=== PATIENT | male | born 1930 | race Caucasian/White ===

== ENCOUNTER 2018-11-09 16:52 | Observation (INO) ==
--- NOTE | 2018-11-09 17:16 | Emergency Department Note ---
Disposition Clinical Impression: Hyperkalemia, Encephalopathy, Acute kidney injury superimposed on CKD, Elevated troponin, Chronic anemia Disposition: Admitted As Inpatient Condition: Good General Adult HPI - General Chief complaint: ED Altered Mental Status Stated complaint: AMS Time Seen by Provider: 11/09/18 17:09 Source: patient Limitations: no limitations - History of Present Illness Pain Scale: 0 - Related Data Home Medications Medication Instructions Recorded Confirmed Atenolol [Tenormin] 25 mg PO DAILY 01/14/17 02/12/18 RX: Lisinopril [Zestril] 10 mg PO 01/14/17 Allergies Allergy/AdvReac Type Severity Reaction Status Date / Time No Known Allergies Allergy Verified 02/12/18 11:27 Past Medical History - Past Medical History Medical history: Reports: non-contributory, hypertension, renal disease Psychiatric history: Reports: no psych history - Social History Smoking Status: Never smoker Smokeless Tobacco Status: No Alcohol use: Reports: none Physical Exam - General Limitations: no limitations General appearance: alert, in no apparent distress Course Vital Signs Temperature 97.7 F 11/09/18 17:01 Pulse Rate 112 11/09/18 17:01 Respiratory Rate 26 11/09/18 17:01 Blood Pressure 82/47 11/09/18 17:01 O2 Sat by Pulse Oximetry 100 11/09/18 17:01 Temperature 97.5 F L 11/10/18 07:00 Pulse Rate 93 11/10/18 07:00 Respiratory Rate 14 11/10/18 07:00 Blood Pressure 119/68 11/10/18 07:00 O2 Sat by Pulse Oximetry 100 11/10/18 07:00 Oxygen Delivery Oxygen Delivery Room Air Medical Decision Making - Lab Data Result diagrams: 11/10/18 05:02 11/10/18 05:02 Lab Results 11/09/18 11/09/18 11/09/18 Range/Units 17:35 17:35 17:45 WBC 13.0 H (4.3-11.1) K/mcL RBC 2.94 L (4.19-5.50) M/mcL Hgb 10.1 L (12.9-16.9) g/dL Hct 31.2 L (37.5-50.1) % MCV 106.1 H (83.0-100.0) fL MCH 34.4 H (28.0-33.3) pg MCHC 32.4 (31.6-35.5) g/dL RDW 14.0 (11.5-14.5) % Plt Count 379 (140-400) K/mcL MPV 9.6 (9.4-12.4) fL Immature Gran % 0.5 (0-4) % Seg Neutrophils % 83.3 % Lymphocytes % 10.1 % Monocytes % 5.5 % Eosinophils % 0.1 % Basophils % 0.5 % Neutrophils # 10.9 H (1.6-8.9) K/mcL Lymphocytes # 1.3 (0.6-4.6) K/mcL Monocytes # 0.7 (0.0-1.3) K/mcL Eosinophils # 0.0 (0.0-0.6) K/mcL Basophils # 0.1 (0.0-0.2) K/mcL Sodium 138 (136-145) mEq/L Potassium 5.7 H (3.5-5.1) mEq/L Chloride 111 H (98-107) mEq/L Carbon Dioxide 12 L (23-29) mEq/L BUN 82 H (8-23) mg/dL Creatinine 3.42 H (0.70-1.30) mg/dL Est GFR ( Amer) 21 L (> 60) Est GFR (Non-Af Amer) 17 L (> 60) BUN/Creatinine Ratio 24 (6-26) Glucose 113 H (70-105) mg/dL Calculated Osmolality 312 H (280-300) Lactic Acid 1.0 (0.5-2.2) mmol/L Calcium 9.0 (8.6-10.3) mg/dL Phosphorus 4.6 H (2.7-4.5) mg/dL Magnesium 2.4 (1.6-2.6) mg/dL Total Bilirubin 0.2 L (0.3-1.0) mg/dL Direct Bilirubin 0.1 (0.0-0.2) mg/dL Indirect Bilirubin 0.1 (0.0-1.2) mg/dL AST 12 L (13-39) Units/L ALT 9 (7-52) Units/L Alkaline Phosphatase 47 (34-104) Units/L Troponin I 0.04 H* (< 0.04) ng/mL Serum Total Protein 6.3 L (6.4-8.9) g/dL Albumin 3.6 (3.5-5.7) g/dL Globulin 2.7 (2.4-3.5) g/dL Albumin/Globulin Ratio 1.3 (1.1-2.2) Urine Color (Yellow) Urine Clarity (Clear) Urine pH (5.0-8.0) pH Units Ur Specific [place] (1.010-1.025) Urine Protein (Neg-Trace) mg/dL Urine Glucose (UA) (Normal) mg/dL Urine Ketones (Negative) mg/dL Urine Blood (Negative) Urine Nitrite (Negative) Urine Bilirubin (Negative) Urine Urobilinogen (Normal) mg/dL Ur Leukocyte Esterase (Negative) Ur Culture Indicated? (NO) 11/09/18 11/09/18 11/09/18 Range/Units 20:20 21:37 21:37 WBC (4.3-11.1) K/mcL RBC (4.19-5.50) M/mcL Hgb (12.9-16.9) g/dL Hct (37.5-50.1) % MCV (83.0-100.0) fL MCH (28.0-33.3) pg MCHC (31.6-35.5) g/dL RDW (11.5-14.5) % Plt Count (140-400) K/mcL MPV (9.4-12.4) fL Immature Gran % (0-4) % Seg Neutrophils % % Lymphocytes % % Monocytes % % Eosinophils % % Basophils % % Neutrophils # (1.6-8.9) K/mcL Lymphocytes # (0.6-4.6) K/mcL Monocytes # (0.0-1.3) K/mcL Eosinophils # (0.0-0.6) K/mcL Basophils # (0.0-0.2) K/mcL Sodium 140 (136-145) mEq/L Potassium 4.4 (3.5-5.1) mEq/L Chloride 114 H (98-107) mEq/L Carbon Dioxide 12 L (23-29) mEq/L BUN 79 H (8-23) mg/dL Creatinine 3.22 H (0.70-1.30) mg/dL Est GFR ( Amer) 22 L (> 60) Est GFR (Non-Af Amer) 18 L (> 60) BUN/Creatinine Ratio 25 (6-26) Glucose 123 H (70-105) mg/dL Calculated Osmolality 315 H (280-300) Lactic Acid (0.5-2.2) mmol/L Calcium 8.8 (8.6-10.3) mg/dL Phosphorus (2.7-4.5) mg/dL Magnesium (1.6-2.6) mg/dL Total Bilirubin (0.3-1.0) mg/dL Direct Bilirubin (0.0-0.2) mg/dL Indirect Bilirubin (0.0-1.2) mg/dL AST (13-39) Units/L ALT (7-52) Units/L Alkaline Phosphatase (34-104) Units/L Troponin I 0.04 H* (< 0.04) ng/mL Serum Total Protein (6.4-8.9) g/dL Albumin (3.5-5.7) g/dL Globulin (2.4-3.5) g/dL Albumin/Globulin Ratio (1.1-2.2) Urine Color Yellow (Yellow) Urine Clarity Clear (Clear) Urine pH 5.0 (5.0-8.0) pH Units Ur Specific [place] 1.023 (1.010-1.025) Urine Protein Trace (Neg-Trace) mg/dL Urine Glucose (UA) Normal (Normal) mg/dL Urine Ketones Trace H (Negative) mg/dL Urine Blood Negative (Negative) Urine Nitrite Negative (Negative) Urine Bilirubin Negative (Negative) Urine Urobilinogen Normal (Normal) mg/dL Ur Leukocyte Esterase Negative (Negative) Ur Culture Indicated? NO (NO) Attestation Statement - Attestation Attestation: I examined this patient and my medical decision-making was reviewed with the Resident Physician. I agree with the documented findings, disposition and treatment plan as described except to the extent set forth below. [id number] time provided Patient arrives in the care of his family with confusion. He has a history of chronic kidney disease. He is not dialysis dependent. He is alert and appears in no acute distress. Family provides most of the history 18:43: Care endorsed to Dr. Sage at [address] head, urinalysis. I anticipate the patient being admitted for CKD, hyperkalemia, confusion
[2018-11-09] MEDS ORDERED: 0.9 % Sodium Chloride 1,000 ML IVC ONE ×2 (17:27→19:51)
[2018-11-09 17:45] LABS: Basophils # 0.1 K/mcL (0.0-0.2); Basophils % 0.5 %; Eosinophils % 0.1 %; Hematocrit 31.2 % (37.5-50.1); Hemoglobin 10.1 g/dL (12.9-16.9); Immature Granulocytes % 0.5 % (0-4); Lymphocytes # 1.3 K/mcL (0.6-4.6); Lymphocytes % 10.1 %; Mean Corpuscular HGB Conc 32.4 g/dL (31.6-35.5); Mean Corpuscular Hemoglobin 34.4 pg (28.0-33.3); Mean Corpuscular Volume 106.1 fL (83.0-100.0); Mean Platelet Volume 9.6 fL (9.4-12.4); Monocytes # 0.7 K/mcL (0.0-1.3); Monocytes % 5.5 %; Neutrophils # 10.9 K/mcL (1.6-8.9); Platelet Count 379 K/mcL (140-400); Red Blood Count 2.94 M/mcL (4.19-5.50); Segmented Neutrophils % 83.3 %
[2018-11-09 18:08] LABS: Albumin 3.6 g/dL (3.5-5.7); Albumin/Globulin Ratio 1.3 (1.1-2.2); Bilirubin,Direct 0.1 mg/dL (0.0-0.2); Bilirubin,Indirect 0.1 mg/dL (0.0-1.2); Bilirubin,Total 0.2 mg/dL (0.3-1.0); Globulin 2.7 g/dL (2.4-3.5); Magnesium 2.4 mg/dL (1.6-2.6); Phosphorous 4.6 mg/dL (2.7-4.5); Potassium 5.7 mEq/L (3.5-5.1); Total Protein 6.3 g/dL (6.4-8.9)
--- NOTE | 2018-11-09 18:09 | Emergency Department Note ---
Disposition Clinical Impression: Hyperkalemia, Encephalopathy, Acute kidney injury superimposed on CKD, Elevated troponin, Chronic anemia Disposition: Still a Patient Condition: Good Referrals: Katrin Rivera, GRAIN OILSEED OR PASTURE GROWER [Primary Care Provider] - Forms: ED Satisfaction Letter Time of Disposition: 18:57 Altered Mental Status HPI - General Chief Complaint: ED Altered Mental Status Stated Complaint: AMS Time Seen by Provider: 11/09/18 17:09 Source: patient, family Limitations: altered mental status Nursing Notes Reviewed: Yes Vital Signs Reviewed: Yes - History of Present Illness HPI Narrative: 88-year-old male presents to the emergency department with family with concerns of altered mental status. The majority of the history was obtained by daughter whose the patient lives with. They state over the past 2 months he has been progressively more forgetful confused and today appeared more weak than usual. States all the symptoms seem to have worsened over the past 2 months. He is been complaining of vague abdominal pain with nausea and vomiting and decreased appetite. He is seen his primary care provider as well as his pocket machine operator during this time and they have not found any exact etiology. Today was most concerning as he was unable to stand and walk like he normally does. They state 2 months ago he was able to walk half a mile with his dog. They deny any fevers cough or shortness of breath. Unknown last bowel movement. He denies any pain with urination. No recent hospitalization. Dr. Harris is his pocket machine operator and diagnosed with stage III kidney disease. He is not at this stage of dialysis. Family is most concerned for his weakness which appears acute compared to his forgetfulness and confusion that has been ongoing. No history of alcohol abuse or liver disease. MD complaint: altered mental status, confusion - Related Data Home Medications Medication Instructions Recorded Confirmed Atenolol [Tenormin] 25 mg PO DAILY 01/14/17 02/12/18 Lisinopril [Zestril] 10 mg PO 01/14/17 Allergies Allergy/AdvReac Type Severity Reaction Status Date / Time No Known Allergies Allergy Verified 02/12/18 11:27 All systems ED: reviewed and negative except as stated. Limitations: ROS unobtainable due to patients medical condition Past Medical History - Past Medical History Source: obtained from family Medical history: Reports: non-contributory, hypertension, renal disease Psychiatric history: Reports: no psych history - Social History Smoking Status: Never smoker Smokeless Tobacco Status: No Alcohol use: Reports: none Physical Exam - General Limitations: no limitations, other (Hard of hearing) General appearance: alert, in no apparent distress, cachectic - Head Head exam: atraumatic, normocephalic, normal inspection - Eye Eye exam: Present: normal appearance, PERRL, EOMI. Absent: scleral icterus - ENT ENT exam: normal exam, normal oropharynx, mucous membranes moist - Neck Neck exam: Present: normal inspection, full ROM, trachea midline - Chest Chest inspection: Present: normal inspection, symmetric chest wall rise - Respiratory Respiratory exam: Present: normal lung sounds bilaterally. Absent: respiratory distress, wheezes - Cardiovascular Cardiovascular exam: Present: regular rate, normal rhythm, normal heart sounds. Absent: systolic murmur, diastolic murmur - Abdominal Exam Abdominal exam: Present: soft, Non-Tender, normal bowel sounds. Absent: te nderness, distention, guarding, rebound, rigidity - Extremities Exam Extremities exam: Present: normal inspection, full ROM. Absent: tenderness, pedal edema - Back Exam Back exam: Present: normal inspection, full ROM. Absent: tenderness - Neurological Exam Neurological exam: Present: alert, other (bradykinesis, cogwheeling) - Expanded Neurological Exam Patient oriented to: Present: person, place. Absent: time Cranial nerves: EOM function (II, III, IV, ): Normal, facial sensation (V): Normal, facial palsy (VII): Normal, gag reflex (IX): Normal, tongue deviation (XII): Normal Motor strength - LUE: 5/5 Motor strength - RUE: 5/5 Motor strength - LLE: 5/5 Motor strength - RLE: 5/5 Coma Scale Eye Opening: Spontaneous Coma Scale Motor Response: Obeys Commands Coma Scale Verbal Response: Confused Coma Scale Total: 14 - Psychiatric Psychiatric exam: Present: normal mood, flat affect - Skin Skin exam: Present: warm, dry, intact, normal color Course Course Narrative: Over the past 2 years the patient has been living with the daughter and son-in-law. Patient's recently past due to Alzheimer's dementia. The family is gone from the hours of 7 AM to 4 PM. They deny any recent fall or injury. The daughter wishes to speak with social science analyst on additional resources. They are adamant about not placing the patient in a nursing facility. They state he is significantly more weak than usual. Altered mental status workup initiated including a CT head as well as evaluation for possible sepsis. Patient is afebrile but tachycardic. His blood pressure is low despite his history of hypertension. Neurologic exam reveals that he is hard of hearing but oriented to person. He does not know the year but does regret recognize that he is in the hospital. He exhibited cogwheel rigidity and bradykinesia. No history of dementia reported. Disposition pending workup. - Reevaluation(s) Reevaluation #1: Patient has hyperkalemia 5.7. His creatinine is 3.5. His troponin is also elevated .04 in the setting of chronic kidney disease. I suspect this is likely interpreting to some of his weakness and confusion. We will treat his hyperkalemia with calcium, insulin, glucose and albuterol. Patient's daughter states that he has been having progressively worsening kidney failure. He has been initiated on bicarb salt tablets. Patient will require admission for his hyperkalemia and weakness. Patient and family are in agreement with this plan. CT scan of the head is pending. Urinalysis is pending. No active signs of infection at this time. Patient will likely require admission. Patient was signed out to nighttime physician Dr. Sage. Please see his note for further details and final disposition. Time: 18:55 Vital Signs Temperature 97.7 F 11/09/18 17:01 Pulse Rate 112 11/09/18 17:01 Respiratory Rate 26 11/09/18 17:01 Blood Pressure 82/47 11/09/18 17:01 O2 Sat by Pulse Oximetry 100 11/09/18 17:01 Temperature 97.7 F 11/09/18 17:01 Pulse Rate 112 11/09/18 17:01 Respiratory Rate 26 11/09/18 17:01 Blood Pressure 82/47 11/09/18 17:01 O2 Sat by Pulse Oximetry 100 11/09/18 17:01 Oxygen Delivery Oxygen Delivery Room Air Altered Mental Status - MDM Narrative Medical decision making narrative: Patient was discussed with my attending physician who agrees with ED management and final disposition. They independently evaluated the patient. Please refer to their attestation to this encounter for additional information. This note was generated by [employer] voice recognition software and as a result grammatical or spelling errors may occur using this program. - Medical Records Medical records reviewed: Yes I reviewed the patient's medical records. - Lab Data Lab results reviewed: Yes I reviewed the patient's lab results. Result diagrams: 11/09/18 17:35 11/09/18 17:35 Lab Results 11/09/18 11/09/18 11/09/18 Range/Units 17:35 17:35 17:45 WBC 13.0 H (4.3-11.1) K/mcL RBC 2.94 L (4.19-5.50) M/mcL Hgb 10.1 L (12.9-16.9) g/dL Hct 31.2 L (37.5-50.1) % MCV 106.1 H (83.0-100.0) fL MCH 34.4 H (28.0-33.3) pg MCHC 32.4 (31.6-35.5) g/dL RDW 14.0 (11.5-14.5) % Plt Count 379 (140-400) K/mcL MPV 9.6 (9.4-12.4) fL Immature Gran % 0.5 (0-4) % Seg Neutrophils % 83.3 % Lymphocytes % 10.1 % Monocytes % 5.5 % Eosinophils % 0.1 % Basophils % 0.5 % Neutrophils # 10.9 H (1.6-8.9) K/mcL Lymphocytes # 1.3 (0.6-4.6) K/mcL Monocytes # 0.7 (0.0-1.3) K/mcL Eosinophils # 0.0 (0.0-0.6) K/mcL Basophils # 0.1 (0.0-0.2) K/mcL Sodium 138 (136-145) mEq/L Potassium 5.7 H (3.5-5.1) mEq/L Chloride 111 H (98-107) mEq/L Carbon Dioxide 12 L (23-29) mEq/L BUN 82 H (8-23) mg/dL Creatinine 3.42 H (0.70-1.30) mg/dL Est GFR ( Amer) 21 L (> 60) Est GFR (Non-Af Amer) 17 L (> 60) BUN/Creatinine Ratio 24 (6-26) Glucose 113 H (70-105) mg/dL Calculated Osmolality 312 H (280-300) Lactic Acid 1.0 (0.5-2.2) mmol/L Calcium 9.0 (8.6-10.3) mg/dL Phosphorus 4.6 H (2.7-4.5) mg/dL Magnesium 2.4 (1.6-2.6) mg/dL Total Bilirubin 0.2 L (0.3-1.0) mg/dL Direct Bilirubin 0.1 (0.0-0.2) mg/dL Indirect Bilirubin 0.1 (0.0-1.2) mg/dL AST 12 L (13-39) Units/L ALT 9 (7-52) Units/L Alkaline Phosphatase 47 (34-104) Units/L Troponin I 0.04 H* (< 0.04) ng/mL Serum Total Protein 6.3 L (6.4-8.9) g/dL Albumin 3.6 (3.5-5.7) g/dL Globulin 2.7 (2.4-3.5) g/dL Albumin/Globulin Ratio 1.3 (1.1-2.2) - Radiology Data Radiology results reviewed: Yes I reviewed the patient's radiology results. Chest X-Ray 11/09/18 17:16 IMPRESSION: No acute process. D/ / Sammy Patten MD / Sammy Patten MD Interpreting Provider: Sammy Patten MD - EKG Data EKG attestation: Yes I reviewed and interpreted this EKG. EKG results narrative: EKG performed at 1718 normal sinus rhythm 95 beats per minute, normal axis, left bundle branch block QRS 134, no Sgarbossa criteria. There is no old EKG available for comparison at this time. No acute ischemic changes. TPA Checklist - LKW: 3-4.5 hrs Add. Warnings/Precautions Patient/family understanding: The patient/family members have been counseled and understood the risk, benefit, and alternatives of treatment. S.B.A.R. - S.B.A.R. Situation: Demographics, MOA Background: Presenting Complaint, Relevant PMH, Meds, & Allergies Assessment: Vital Signs, Course and respsone to treatment, Exam Concerns, Patient/Family Expectation, Pertinant Lab Results, Outstanding Labs Recommendation: Barrier(s) to disposition, Recommendation based on pending studies, treatments, or consults Jonathon Report Given to: Dr. Alona Holt Repor Time: 18:58
[2018-11-09 18:21] LABS: Troponin I 0.04 ng/mL (< 0.04)
[2018-11-09] MEDS ORDERED: Albuterol 2.5 MG/3 ML NEBULIZER IH ONE (18:40)
[2018-11-09] MEDS ORDERED: Insulin Human Regular 10 UNIT in 0.9 % Sodium Chloride 10 ML IV ONE (18:40)
[2018-11-09] MEDS ORDERED: *HR* Dextrose 50 % in Water (Syg) 50 ML SYRINGE IVP ONE (18:41)
[2018-11-09] MEDS ORDERED: Aspirin 325 MG TABLET PO ONE (18:54)
[2018-11-09 20:39] LABS: Bilirubin,Urine Negative (Negative); Blood,Urine Negative (Negative); Clarity,Urine Clear (Clear); Color,Urine Yellow (Yellow); Glucose,Urine (UA) Normal (Normal); Ketones,Urine Trace mg/dL (Negative); Leukocyte Esterase,Urine Negative (Negative); Nitrite,Urine Negative (Negative); Protein,Urine Trace mg/dL (Neg-Trace); Specific Gravity,Urine 1.023 (1.010-1.025); Urobilinogen,Urine Normal (Normal)
--- NOTE | 2018-11-09 21:17 | Emergency Department Note ---
Disposition Clinical Impression: Hyperkalemia, Encephalopathy, Acute kidney injury superimposed on CKD, Elevated troponin, Chronic anemia Disposition: Admitted As Inpatient Condition: Good Referrals: Katrin Rivera, TRAIN CONTROL ELECTRONIC TECHNICIAN [Primary Care Provider] - Forms: ED Satisfaction Letter General Adult HPI - General Chief complaint: ED Altered Mental Status Stated complaint: AMS Time Seen by Provider: 11/09/18 17:09 Source: patient, family Limitations: no limitations, other (Hard of hearing) - History of Present Illness Pain Scale: 0 - Related Data Home Medications Medication Instructions Recorded Confirmed Atenolol [Tenormin] 25 mg PO DAILY 01/14/17 02/12/18 Lisinopril [Zestril] 10 mg PO 01/14/17 Allergies Allergy/AdvReac Type Severity Reaction Status Date / Time No Known Allergies Allergy Verified 02/12/18 11:27 Past Medical History - Past Medical History Medical history: Reports: non-contributory, hypertension, renal disease Psychiatric history: Reports: no psych history - Social History Smoking Status: Never smoker Smokeless Tobacco Status: No Alcohol use: Reports: none Physical Exam - General Limitations: no limitations, other (Hard of hearing) General appearance: alert, in no apparent distress, cachectic Course Course Narrative: Patient was taken over at sign out from Dr. Prisca Vázquez. Patient with increased confusion and concern for dehydration as he has not tolerated anything for the last several days. Patient with nausea, decreased appetite, vomiting without abdominal pain. CT scan of the head and urinalysis are pending. CT scan without acute abnormality. Urinalysis without evidence of infection. Patient mildly elevated leukocytosis without cough or sinus infection urinalysis. Patient is afebrile. Patient should vital signs significantly improved after fluids. Concern for significant dehydration. Patient will undergo repeat testing and continued monitoring with the hospital. Patient did receive treatment for elevated potassium with concern for EKG changes. Discussed with hospitalist. Patient to get Kayexalate. Repeat BMP and troponin ordered. I have discussed overall results with patient and family. Vital Signs Temperature 97.7 F 11/09/18 17:01 Pulse Rate 112 11/09/18 17:01 Respiratory Rate 26 11/09/18 17:01 Blood Pressure 82/47 11/09/18 17:01 O2 Sat by Pulse Oximetry 100 11/09/18 17:01 Temperature 97.7 F 11/09/18 17:01 Pulse Rate 87 11/09/18 19:40 Respiratory Rate 20 11/09/18 19:40 Blood Pressure 113/69 11/09/18 19:40 O2 Sat by Pulse Oximetry 100 11/09/18 19:40 Oxygen Delivery Oxygen Delivery Room Air Medical Decision Making - Lab Data Result diagrams: 11/09/18 17:35 11/09/18 17:35 Lab Results 11/09/18 11/09/18 11/09/18 Range/Units 17:35 17:35 17:45 WBC 13.0 H (4.3-11.1) K/mcL RBC 2.94 L (4.19-5.50) M/mcL Hgb 10.1 L (12.9-16.9) g/dL Hct 31.2 L (37.5-50.1) % MCV 106.1 H (83.0-100.0) fL MCH 34.4 H (28.0-33.3) pg MCHC 32.4 (31.6-35.5) g/dL RDW 14.0 (11.5-14.5) % Plt Count 379 (140-400) K/mcL MPV 9.6 (9.4-12.4) fL Immature Gran % 0.5 (0-4) % Seg Neutrophils % 83.3 % Lymphocytes % 10.1 % Monocytes % 5.5 % Eosinophils % 0.1 % Basophils % 0.5 % Neutrophils # 10.9 H (1.6-8.9) K/mcL Lymphocytes # 1.3 (0.6-4.6) K/mcL Monocytes # 0.7 (0.0-1.3) K/mcL Eosinophils # 0.0 (0.0-0.6) K/mcL Basophils # 0.1 (0.0-0.2) K/mcL Sodium 138 (136-145) mEq/L Potassium 5.7 H (3.5-5.1) mEq/L Chloride 111 H (98-107) mEq/L Carbon Dioxide 12 L (23-29) mEq/L BUN 82 H (8-23) mg/dL Creatinine 3.42 H (0.70-1.30) mg/dL Est GFR ( Amer) 21 L (> 60) Est GFR (Non-Af Amer) 17 L (> 60) BUN/Creatinine Ratio 24 (6-26) Glucose 113 H (70-105) mg/dL Calculated Osmolality 312 H (280-300) Lactic Acid 1.0 (0.5-2.2) mmol/L Calcium 9.0 (8.6-10.3) mg/dL Phosphorus 4.6 H (2.7-4.5) mg/dL Magnesium 2.4 (1.6-2.6) mg/dL Total Bilirubin 0.2 L (0.3-1.0) mg/dL Direct Bilirubin 0.1 (0.0-0.2) mg/dL Indirect Bilirubin 0.1 (0.0-1.2) mg/dL AST 12 L (13-39) Units/L ALT 9 (7-52) Units/L Alkaline Phosphatase 47 (34-104) Units/L Troponin I 0.04 H* (< 0.04) ng/mL Serum Total Protein 6.3 L (6.4-8.9) g/dL Albumin 3.6 (3.5-5.7) g/dL Globulin 2.7 (2.4-3.5) g/dL Albumin/Globulin Ratio 1.3 (1.1-2.2) Urine Color (Yellow) Urine Clarity (Clear) Urine pH (5.0-8.0) pH Units Ur Specific [place] (1.010-1.025) Urine Protein (Neg-Trace) mg/dL Urine Glucose (UA) (Normal) mg/dL Urine Ketones (Negative) mg/dL Urine Blood (Negative) Urine Nitrite (Negative) Urine Bilirubin (Negative) Urine Urobilinogen (Normal) mg/dL Ur Leukocyte Esterase (Negative) Ur Culture Indicated? (NO) 11/09/18 Range/Units 20:20 WBC (4.3-11.1) K/mcL RBC (4.19-5.50) M/mcL Hgb (12.9-16.9) g/dL Hct (37.5-50.1) % MCV (83.0-100.0) fL MCH (28.0-33.3) pg MCHC (31.6-35.5) g/dL RDW (11.5-14.5) % Plt Count (140-400) K/mcL MPV (9.4-12.4) fL Immature Gran % (0-4) % Seg Neutrophils % % Lymphocytes % % Monocytes % % Eosinophils % % Basophils % % Neutrophils # (1.6-8.9) K/mcL Lymphocytes # (0.6-4.6) K/mcL Monocytes # (0.0-1.3) K/mcL Eosinophils # (0.0-0.6) K/mcL Basophils # (0.0-0.2) K/mcL Sodium (136-145) mEq/L Potassium (3.5-5.1) mEq/L Chloride (98-107) mEq/L Carbon Dioxide (23-29) mEq/L BUN (8-23) mg/dL Creatinine (0.70-1.30) mg/dL Est GFR ( Amer) (> 60) Est GFR (Non-Af Amer) (> 60) BUN/Creatinine Ratio (6-26) Glucose (70-105) mg/dL Calculated Osmolality (280-300) Lactic Acid (0.5-2.2) mmol/L Calcium (8.6-10.3) mg/dL Phosphorus (2.7-4.5) mg/dL Magnesium (1.6-2.6) mg/dL Total Bilirubin (0.3-1.0) mg/dL Direct Bilirubin (0.0-0.2) mg/dL Indirect Bilirubin (0.0-1.2) mg/dL AST (13-39) Units/L ALT (7-52) Units/L Alkaline Phosphatase (34-104) Units/L Troponin I (< 0.04) ng/mL Serum Total Protein (6.4-8.9) g/dL Albumin (3.5-5.7) g/dL Globulin (2.4-3.5) g/dL Albumin/Globulin Ratio (1.1-2.2) Urine Color Yellow (Yellow) Urine Clarity Clear (Clear) Urine pH 5.0 (5.0-8.0) pH Units Ur Specific [place] 1.023 (1.010-1.025) Urine Protein Trace (Neg-Trace) mg/dL Urine Glucose (UA) Normal (Normal) mg/dL Urine Ketones Trace H (Negative) mg/dL Urine Blood Negative (Negative) Urine Nitrite Negative (Negative) Urine Bilirubin Negative (Negative) Urine Urobilinogen Normal (Normal) mg/dL Ur Leukocyte Esterase Negative (Negative) Ur Culture Indicated? NO (NO)
[2018-11-09] MEDS ORDERED: 0.9 % Sodium Chloride 1,000 ML IVC SCH (21:45)
[2018-11-09 22:10] LABS: Calcium 8.8 mg/dL (8.6-10.3); Potassium 4.4 mEq/L (3.5-5.1)
--- NOTE | 2018-11-09 23:30 | Internal Med History&Physical ---
Date of Encounter: 11/09/18 Time of Encounter: 23:27 Internal Medicine - H&P: HPI Chief complaint: AMS Admitted From: Home Plans for Post Hospital Care: Transfer [facility] History of present illness: Brian Batista is 88 year old man with hypertension and chronic kidney disease who was brought in by family members that stay with him brought him in for altered mental status. They state over the past 2 months he has been progressively more forgetful confused and today appeared weaker than usual. He has been complaining of vague abdominal pain with nausea and vomiting and decreased appetite. He was seen by his primary care provider as well as his marketing intelligence analyst during this time and they have not found any exact etiology. Today was most concerning as he was unable to stand and walk like he normally does. They stated 2 months ago he was able to walk half a mile with his dog. They deny him having any fevers, cough or shortness of breath. He denied any pain with urination. No recent hospitalization. The family is most concerned for his weakness which appears acute compared to his forgetfulness and confusion that has been ongoing. No history of alcohol abuse or liver disease. In the ER he remained hemodynamically stable but with worsening kidney function and hyperkalemia. A troponin of 0.04 was also noted. He was given temporizing measures and subsequently a dose of kayexalate. He is now admitted for further care. Family history reviewed and found non-contributory. Vitals: Reviewed General: Cachectic, emaciated, ill-appearing elderly white man Skin: Dry, warm HEENT: Dry mucous membranes. (+) conjunctivae pallor. Neck: No lymphadenopathy. No JVD. No carotid bruits. No palpable thyroid. Chest: Normal thoracic expansion. Normal breath sounds. Clear to auscultation. Heart: Normal S1 & S2; rhythmic. No rubs or murmurs. Abdomen: Excavated, soft and non-tender to palpation. No peritoneal reaction. Extremities: No clubbing, cyanosis or edema. No calf tenderness. Normal distal pulses. Neurological: Poorly responsive. Psych: Poorly responsive. Past Med Surg Social Fam HX - Past Medical History Medical history: non-contributory, hypertension, renal disease Psychiatric history: no psych history - Social History Smoking Status: Never smoker Smokeless Tobacco Status: No Alcohol use: none Internal Medicine - H&P: Meds Atenolol [Tenormin] 25 mg PO DAILY 01/14/17 [History] Lisinopril [Zestril] 10 mg PO 01/14/17 [History] Allergy/AdvReac Type Severity Reaction Status Date / Time No Known Allergies Allergy Verified 02/12/18 11:27 All Systems PM: A 10-system review of systems was performed and is negative for pertinent findings except as documented above in the HPI. - Constitutional Vitals: Temp Pulse Resp BP Pulse Ox 97.7 F 84 20 106/63 100 11/09/18 17:01 11/09/18 23:00 11/09/18 23:00 11/09/18 23:00 11/09/18 23:00 Exam: as above Internal Med - H&P Results - Labs CBC & Chem 7: 11/09/18 17:35 11/09/18 21:37 Labs: Short CBC 11/09/18 Range/Units 17:35 WBC 13.0 H (4.3-11.1) K/mcL Hgb 10.1 L (12.9-16.9) g/dL Hct 31.2 L (37.5-50.1) % Plt Count 379 (140-400) K/mcL Neutrophils # 10.9 H (1.6-8.9) K/mcL BMP 11/09/18 11/09/18 17:35 21:37 Sodium 138 140 Potassium 5.7 H 4.4 Chloride 111 H 114 H Carbon Dioxide 12 L 12 L BUN 82 H 79 H Creatinine 3.42 H 3.22 H Glucose 113 H 123 H Calcium 9.0 8.8 Cardiac Enzymes 11/09/18 11/09/18 Range/Units 17:35 21:37 Troponin I 0.04 H* 0.04 H* (< 0.04) ng/mL Liver Function 11/09/18 Range/Units 17:35 Total Bilirubin 0.2 L (0.3-1.0) mg/dL Direct Bilirubin 0.1 (0.0-0.2) mg/dL AST 12 L (13-39) Units/L ALT 9 (7-52) Units/L Alkaline Phosphatase 47 (34-104) Units/L Albumin 3.6 (3.5-5.7) g/dL Urine 11/09/18 Range/Units 20:20 Urine Color Yellow (Yellow) Urine Clarity Clear (Clear) Urine pH 5.0 (5.0-8.0) pH Units Ur Specific [place] 1.023 (1.010-1.025) Urine Protein Trace (Neg-Trace) mg/dL Urine Glucose (UA) Normal (Normal) mg/dL - Impressions ITS Impressions Chest X-Ray 11/09/18 17:16 IMPRESSION: No acute process. D/ / Sammy Patten MD / Sammy Patten MD Interpreting Provider: Sammy Patten MD Head CT 11/09/18 17:45 IMPRESSION: No acute intracranial abnormality. Mild chronic small ischemic disease. Chronic right maxillary sinus disease. D/ / Oswaldo Peterson / Oswaldo Peterson Interpreting Provider: Oswaldo Peterson - Assessment and Plan (1) Acute kidney injury superimposed on CKD Current Visit: Yes Status: Acute Assessment and plan: Unclear etiology. He appears markedly dehydrated which is a potential cause of his HERNAN from pre-renal hypovolemia however it is equally feasible that his progressive intrinsic kidney disease has caused his malaise and anorexia leading to poor intake thereby causing a vicious cycle of worsening disease. We will rehydrate him with normal saline and recheck his numbers. Will place nephrology consult for evaluation as well. Will start oral bicarb supplementation for his metabolic acidosis; monitor phos levels as well. Lisinopril on hold for now. (2) Chronic anemia Current Visit: Yes Status: Acute Assessment and plan: Likely AOCD but there may be a compounding iron deficiency as well. Will send studies. Start FeSO4 and folate supplementation. (3) Elevated troponin Current Visit: Yes Status: Acute Assessment and plan: Likely secondary to kidney disease. Adynamic trend. Non-ischemic EKG and clinical presentation does not correlate with ACS. Will order an echo for evaluation. (4) Encephalopathy Current Visit: Yes Status: Acute Assessment and plan: In the setting of worsening kidney disease. Does not seem to be acutely uremic at the moment however. No signs of infection present. Will continue to monitor closely. He will benefit from PT evaluation once more stable and subsequent long-term care/rehab needs. Fall and aspiration precautions ordered. (5) Hyperkalemia Current Visit: Yes Status: Acute Assessment and plan: In the setting of acute on chronic kidney disease. Since resolved with medical therapy. - Time Spent With Patient Total time spent is greater than 50% in coordination of care (as documented) at patient's floor/unit and/or counseling patient: Greater than 35 minutes
[2018-11-10] MEDS: *HR* Heparin 5,000 UNIT/ML VIAL SQ SCH ×2 (05:22→17:01)
[2018-11-10 05:44] LABS: Basophils # 0.1 K/mcL (0.0-0.2); Basophils % 0.7 %; Eosinophils # 0.1 K/mcL (0.0-0.6); Eosinophils % 0.9 %; Hematocrit 30.2 % (37.5-50.1); Hemoglobin 9.7 g/dL (12.9-16.9); Immature Granulocytes % 0.4 % (0-4); Lymphocytes # 2.2 K/mcL (0.6-4.6); Lymphocytes % 17.8 %; Mean Corpuscular HGB Conc 32.1 g/dL (31.6-35.5); Mean Corpuscular Hemoglobin 34.6 pg (28.0-33.3); Mean Corpuscular Volume 107.9 fL (83.0-100.0); Mean Platelet Volume 9.9 fL (9.4-12.4); Monocytes % 8.1 %; Neutrophils # 8.9 K/mcL (1.6-8.9); Platelet Count 366 K/mcL (140-400); Red Cell Distribution Width 14.1 % (11.5-14.5); Segmented Neutrophils % 72.1 %
[2018-11-10 05:48] LABS: INR 1.1; Prothrombin Time 12.9 Seconds (9.4-12.1)
[2018-11-10 05:50] LABS: Activated Partial Thrombo Time 22.9 Seconds (26.0-36.0)
[2018-11-10 06:03] LABS: Magnesium 2.4 mg/dL (1.6-2.6); Phosphorous 4.1 mg/dL (2.7-4.5)
[2018-11-10 06:04] LABS: Troponin I 0.05 ng/mL (< 0.04)
[2018-11-10 06:08] LABS: Calcium 8.8 mg/dL (8.6-10.3); Potassium 4.4 mEq/L (3.5-5.1)
--- NOTE | 2018-11-10 08:23 | Internal Med Progress Note ---
Hospitalist Progress Note - Encounter Date of Encounter: 11/10/18 Time of Encounter: 11:00 - Subjective Interval History: Patient is a 88-year-old male who presents from long term due to 2 month history of worsening mental status now with an acute onset of generalized weakness found to have acute on chronic renal failure with non-anion gap metabolic acidosis. - Exam Vitals: Temp Pulse Resp BP Pulse Ox 97.5 F L 93 14 119/68 100 11/10/18 07:00 11/10/18 07:00 11/10/18 07:00 11/10/18 07:00 11/10/18 07:00 Exam: Gen.: Nonacute distress, alert and oriented 1 ENT: Mucosal membranes moist Respiratory: Lungs are clear to auscultation bilaterally without any wheezing rhonchi or rales Cardiovascular: Normal S1 and S2 regular rate rhythm no murmurs rubs or gallops Abdomen: Soft, nontender and nondistended with positive bowel sounds Extremities: No lower extremity edema Skin: Normal color - Assessment and Plan (1) Acute kidney injury superimposed on CKD Current Visit: Yes Status: Acute Assessment and Plan: Patient with acute on chronic CKD stage III Creatinine on admission was 3.42 which is improved this morning to 2.86 after 3 L bolus of normal saline Will continue sodium bicarbonate due to patient's anion gap metabolic acidosis Nephrology has been consulted and appreciate recommendations. (2) Encephalopathy Current Visit: Yes Status: Acute Assessment and Plan: Patient with altered mental status in the setting of acute on chronic renal failure. Patient does not seem uremic and there is no evidence of infectious etiology to this point Will continue to monitor closely. PT evaluation once more stable and subsequent long-term care/rehab needs. (3) Elevated troponin Current Visit: Yes Status: Acute Assessment and Plan: Suspect secondary to renal disease Troponins have been adynamic trend with Non-ischemic EKG and clinical presentation does not correlate with ACS. Echocardiogram pending for further evaluation (4) Chronic anemia Current Visit: Yes Status: Acute Assessment and Plan: Iron studies pending Start FeSO4 and folate supplementation. Will continue to monitor - Time Spent with Patient Total time spent is greater than 50% in coordination of care (as documented) at patient's floor/unit and/or counseling patient: Internal Medicine: Result - Labs CBC & Chem 7: 11/11/18 03:32 11/11/18 03:32 Labs: Short CBC 11/09/18 11/10/18 Range/Units 17:35 05:02 WBC 13.0 H 12.4 H (4.3-11.1) K/mcL Hgb 10.1 L 9.7 L (12.9-16.9) g/dL Hct 31.2 L 30.2 L (37.5-50.1) % Plt Count 379 366 (140-400) K/mcL Neutrophils # 10.9 H 8.9 (1.6-8.9) K/mcL BMP 11/09/18 11/09/18 11/10/18 17:35 21:37 05:02 Sodium 138 140 141 Potassium 5.7 H 4.4 4.4 Chloride 111 H 114 H 118 H Carbon Dioxide 12 L 12 L 10 L* BUN 82 H 79 H 75 H Creatinine 3.42 H 3.22 H 2.86 H Glucose 113 H 123 H 70 Calcium 9.0 8.8 8.8 Cardiac Enzymes 11/09/18 11/09/18 11/10/18 Range/Units 17:35 21:37 05:02 Troponin I 0.04 H* 0.04 H* 0.05 H* (< 0.04) ng/mL Liver Function 11/09/18 Range/Units 17:35 Total Bilirubin 0.2 L (0.3-1.0) mg/dL Direct Bilirubin 0.1 (0.0-0.2) mg/dL AST 12 L (13-39) Units/L ALT 9 (7-52) Units/L Alkaline Phosphatase 47 (34-104) Units/L Albumin 3.6 (3.5-5.7) g/dL Urine 11/09/18 Range/Units 20:20 Urine Color Yellow (Yellow) Urine Clarity Clear (Clear) Urine pH 5.0 (5.0-8.0) pH Units Ur Specific [place] 1.023 (1.010-1.025) Urine Protein Trace (Neg-Trace) mg/dL Urine Glucose (UA) Normal (Normal) mg/dL - ABG Interpretation ABG results: PT/INR, D-dimer PT 12.9 Seconds (9.4-12.1) H 11/10/18 05:02 - Impressions Impressions Chest X-Ray 11/09/18 17:16 IMPRESSION: No acute process. D/ / Sammy Patten MD / Sammy Patten MD Interpreting Provider: Sammy Patten MD Head CT 11/09/18 17:45 IMPRESSION: No acute intracranial abnormality. Mild chronic small ischemic disease. Chronic right maxillary sinus disease. D/ / Oswaldo Peterson / Oswaldo Peterson Interpreting Provider: Oswaldo Peterson Consult Discharge Plan - Plan Referrals: Katrin Rivera, LION TRAINER [Primary Care Provider] -
--- NOTE | 2018-11-10 09:33 | Electrocardiograph Report ---
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
[2018-11-10] MEDS ORDERED: Perflutren Lipid Microsphere 1.3 ML in 0.9 % Sodium Chloride 8.7 ML IVP ONE (10:12)
--- NOTE | 2018-11-10 12:39 | Nephrology Consult Note ---
Date of Encounter: 11/10/18 Time of Encounter: 10:25 Assessment and Plan (1) Acute kidney injury superimposed on CKD Current Visit: Yes Status: Acute HERNAN on CKD with slight improvement with IVF. Need to have HERNAN and CKD work up, which was ordered last week when he first established in my clinic (testing not yet done it appearing including the renal U/S and the IVF that I had ordered when I first met him in the office). Over night the IVF have helped it appears, so I do not recommend starting LEAD NETWORK ARCHITECT at this time. Metabolic acidosis: continue the NaBicarb, which I had just started last week; goal serum CO2 is >21, so tomorrow the dosing should be titrated for effect. Further recommendations will depend upon his renal work up. (2) Metabolic acidosis Current Visit: Yes Status: Acute (3) Chronic anemia Current Visit: Yes Status: Acute (4) Encephalopathy Current Visit: Yes Status: Acute (5) Hyperkalemia Current Visit: Yes Status: Acute (6) Family history of CKD (chronic kidney disease) Current Visit: Yes Status: Acute (7) Right kidney mass Current Visit: Yes Status: Acute History of Present Illness - Reason for Consult Consult date: 11/10/18 Acute Kidney Injury, Chronic Kidney Disease, hyperkalemia, metabolic acidosis Requesting physician: Tabatha Littlejohn - Chief Complaint HERNAN on CKD - History of Present Illness The patient is an 88-year-old gentleman with a past medical history of hypertension, GERD, and recent progressive weight loss. Nephrology was consulted due to the acute kidney injury. He recently was referred to me in my office, for HERNAN on CKD. He was unable to relate much history to me today as he was alone in his room, and he is very hard of hearing. I reviewed the prior notes in the outpatient electronic medical records, the labs, the vitals, the medication lists, the previous progress notes and imaging available to me. I recently ordered IV fluids as an outpatient, but this does not appear to have happened yet. Of note, his son and daughter have polycystic kidney disease. Their mother was known to carry the polycystic kidney disease trait. This HPI was limited d/t his mental status. Past Med Surg Social Fam HX - Past Medical History Medical history: non-contributory, hypertension, renal disease Psychiatric history: no psych history - Social History Smoking Status: Never smoker Smokeless Tobacco Status: No Alcohol use: none Medications and Allergies Acetaminophen [Tylenol] 500 - 1,000 mg PO DAILY PRN 11/10/18 [History] Cinnamon Bark [Cinnamon] 2,000 mg PO DAILY 11/10/18 [History] Docusate Sodium [Stool Softener] 100 mg PO DAILY 11/10/18 [History] Lisinopril [Zestril] 40 mg PO DAILY 11/10/18 [History] Metoprolol [Lopressor] 25 mg PO BID 11/10/18 [History] Omeprazole [PriLOSEC] 20 mg PO DAILY 11/10/18 [History] Sodium Bicarbonate 10 gm PO BID 11/10/18 [History] Allergy/AdvReac Type Severity Reaction Status Date / Time No Known Allergies Allergy Verified 02/12/18 11:27 Review of Systems ROS unobtainable: due to mental status Exam - Vital Signs Vital signs: Initial Vital Signs Temp Pulse Resp BP Pulse Ox 97.7 F 112 26 82/47 100 11/09/18 17:01 11/09/18 17:01 11/09/18 17:01 11/09/18 17:01 11/09/18 17:01 Vital Signs - Last 8 Hours Temp Pulse Resp BP Pulse Ox 11/10/18 11:00 97.5 F L 67 14 117/85 100 11/10/18 07:00 97.5 F L 93 14 119/68 100 Intake and Output 11/09/18 11/10/18 11/10/18 23:59 07:59 15:59 Intake Total 0 / 0 Output Total 0 / 0 20 / 20 Balance 0 / 0 -20 / -20 Intake: Oral 0 / 0 Output: Urine 0 / 0 20 / 20 Other: Weight 58.967 kg 56.9 kg Patient Weight 11/10/18 23:59 Weight 56.9 kg - General Appearance General appearance: appears started age, cachectic, chronically ill, fatigue, frail EENT: ATNC, PERRL, mucous membranes dry Additional Comments: Very hard of hearing Respiratory: clear Cardiology: no edema, regular rate, regular rhythm, normal S1, normal S2 Gastrointestinal: normoactive bowel sounds, no tenderness, no guarding Additional Comments: He has a thin abd. No CVA ttp b/l. Integumentary: warm and dry Neurologic: no focal deficit, disoriented Additional Comments: Very hard of hearing. Musculoskeletal: no deformities, no cyanosis, no clubbing Psychiatric: mood/affect appropriate, cooperative Results - Lab Results 11/13/18 11:44 11/13/18 11:44 Most recent lab results Calcium 8.8 mg/dL (8.6-10.3) 11/10/18 05:02 Phosphorus 4.1 mg/dL (2.7-4.5) 11/10/18 05:02 Magnesium 2.4 mg/dL (1.6-2.6) 11/10/18 05:02 I reviewed the available labs, vitals, med list and prior progress notes in [facility] and [facility] plus imaging. Consult Discharge Plan - Plan Referrals: Katrin Rivera, HAZARDOUS MATERIALS HANDLER [Primary Care Provider] -
[2018-11-11 02:13] LABS: Bilirubin,Urine Negative (Negative); Blood,Urine Negative (Negative); Clarity,Urine Clear (Clear); Color,Urine Yellow (Yellow); Glucose,Urine (UA) Normal (Normal); Ketones,Urine Negative (Negative); Leukocyte Esterase,Urine Negative (Negative); Nitrite,Urine Negative (Negative); PH,Urine 5.5 pH Units (5.0-8.0); Protein,Urine Trace mg/dL (Neg-Trace); Urobilinogen,Urine Normal (Normal)
[2018-11-11 03:59] LABS: Basophils # 0.1 K/mcL (0.0-0.2); Basophils % 0.9 %; Eosinophils # 0.1 K/mcL (0.0-0.6); Eosinophils % 1.1 %; Hematocrit 33.6 % (37.5-50.1); Hemoglobin 9.9 g/dL (12.9-16.9); Immature Granulocytes % 0.4 % (0-4); Lymphocytes # 1.4 K/mcL (0.6-4.6); Lymphocytes % 14.7 %; Mean Corpuscular HGB Conc 29.5 g/dL (31.6-35.5); Mean Corpuscular Hemoglobin 34.1 pg (28.0-33.3); Monocytes # 0.6 K/mcL (0.0-1.3); Monocytes % 6.1 %; Platelet Count 319 K/mcL (140-400); Red Cell Distribution Width 14.3 % (11.5-14.5); Segmented Neutrophils % 76.8 %
[2018-11-11 04:03] LABS: Mean Corpuscular Volume 115.9 fL (83.0-100.0); Neutrophils # 7.1 K/mcL (1.6-8.9)
[2018-11-11 04:19] LABS: Albumin 3.3 g/dL (3.5-5.7); Calcium 8.7 mg/dL (8.6-10.3); Potassium 4.6 mEq/L (3.5-5.1)
[2018-11-11 04:44] LABS: Platelet Estimate Normal (Normal)
[2018-11-11] MEDS: *HR* Heparin 5,000 UNIT/ML VIAL SQ SCH ×2 (05:11→18:10)
--- NOTE | 2018-11-11 12:05 | Internal Med Progress Note ---
Hospitalist Progress Note - Encounter Date of Encounter: 11/11/18 Time of Encounter: 11:00 - Subjective Interval History: Patient still with acute renal failure and metabolic acidosis this morning Continuing oral sodium bicarbonate my: Nephrology following - Exam Vitals: Temp Pulse Resp BP Pulse Ox 98.5 F 70 18 100/49 96 11/11/18 11:51 11/11/18 11:51 11/11/18 11:51 11/11/18 11:51 11/11/18 11:51 Exam: Gen.: Nonacute distress, alert and oriented 1 ENT: Mucosal membranes moist Respiratory: Lungs are clear to auscultation bilaterally without any wheezing rhonchi or rales Cardiovascular: Normal S1 and S2 regular rate rhythm no murmurs rubs or gallops Abdomen: Soft, nontender and nondistended with positive bowel sounds Extremities: No lower extremity edema Skin: Normal color - Assessment and Plan (1) Acute kidney injury superimposed on CKD Current Visit: Yes Status: Acute Assessment and Plan: Patient with acute on chronic CKD stage III Serum Creatinine: 3.22->2.86->2.11 Will continue sodium bicarbonate due to patient's anion gap metabolic acidosis Nephrology following and appreciate recommendations. (2) Encephalopathy Current Visit: Yes Status: Acute Assessment and Plan: Head CT showed no acute intracranial abnormalities; MRI pending Patient with altered mental status in the setting of acute on chronic renal failure. Patient apparently per family history has had issues with memory prior to admission for the last several months. Will continue to monitor closely. (3) Elevated troponin Current Visit: Yes Status: Acute Assessment and Plan: Suspect secondary to renal disease Troponins have been adynamic trend with Non-ischemic EKG and clinical presentation does not correlate with ACS. 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 Will continue to monitor DVT Prophylaxis: Heparin subcutaneous - Time Spent with Patient Total time spent is greater than 50% in coordination of care (as documented) at patient's floor/unit and/or counseling patient: Internal Medicine: Result - Labs CBC & Chem 7: 11/11/18 03:32 11/11/18 03:32 Labs: Short CBC 11/11/18 Range/Units 03:32 WBC 9.2 (4.3-11.1) K/mcL Hgb 9.9 L (12.9-16.9) g/dL Hct 33.6 L (37.5-50.1) % Plt Count 319 (140-400) K/mcL Neutrophils # 7.1 (1.6-8.9) K/mcL BMP 11/11/18 03:32 Sodium 144 Potassium 4.6 Chloride 120 H Carbon Dioxide 14 L BUN 65 H Creatinine 2.11 H Glucose 71 Calcium 8.7 Cardiac Enzymes 11/10/18 Range/Units 17:02 Troponin I 0.05 H* (< 0.04) ng/mL Liver Function 11/11/18 Range/Units 03:32 Albumin 3.3 L (3.5-5.7) g/dL Urine 11/11/18 Range/Units 01:55 Urine Color Yellow (Yellow) Urine Clarity Clear (Clear) Urine pH 5.5 (5.0-8.0) pH Units Ur Specific [place] 1.020 (1.010-1.025) Urine Protein Trace (Neg-Trace) mg/dL Urine Glucose (UA) Normal (Normal) mg/dL - ABG Interpretation ABG results: PT/INR, D-dimer PT 12.9 Seconds (9.4-12.1) H 11/10/18 05:02 - Impressions Impressions Echocardiogram 11/09/18 21:45 Impressions: LVEF 60%. Atypical septal motion consistent with bundle branch block. Indeterminate diastolic function. Mild left ventricular diastolic dysfunction. The right ventricle was not well visualized but appeared grossly normal in size and function Moderate mitral annular calcification Unable to estimate RVSP due to lack of TR jet. Left Ventricular Wall Motion: Rest Echo Findings All wall segments showed normal motion. Findings: Study Quality * Technically sub-optimal due to poor echocardiographic windows. ECG Findings * Sinus rhythm with BBB. Left Ventricle * LVEF 60%. * Definity echo contrast was used. * Atypical septal motion consistent with bundle branch block. * Indeterminate diastolic function. * Mild left ventricular diastolic dysfunction. * Mild concentric left ventricular hypertrophy. Right Ventricle * The right ventricle was not well visualized but appeared grossly normal in size and function Left Atrium * Mildly dilated left atrium. Right Atrium * Normal right atrial size. Interatrial Septum * Interatrial septum not well evaluated. Aortic Valve * Aortic valve not well visualized. * Trace aortic regurgitation. Mitral Valve * Mitral valve not well visualized. * No mitral regurgitation. * Moderate mitral annular calcification Tricuspid Valve * Trace tricuspid regurgitation. * Unable to estimate RVSP due to lack of TR jet. Pulmonic Valve * Pulmonic valve not well visualized. Aorta * Normally sized aortic root. Pericardium * The pericardium appears normal. IVC * The IVC is not well evaluated. Pulmonary Artery * Pulmonary artery not well visualized. Consult Discharge Plan - Plan Referrals: Katrin Rivera, PROCESS CONTROL TECHNICIAN [Primary Care Provider] -
--- NOTE | 2018-11-11 17:48 | Nephrology Progress Note ---
Date of Encounter: 11/11/18 Time of Encounter: 17:30 - Assessment and Plan (1) Acute kidney injury superimposed on CKD Current Visit: Yes Status: Acute SCr improving at 2.11 today, continue IVF today Encouraged adequate po fluids as well Continue to avoid nephrotoxins if possible (2) Metabolic acidosis Current Visit: Yes Status: Acute Bicarb slightly better on po bicarb Will give bicarb gtt today as well (3) Hyperkalemia Current Visit: Yes Status: Acute Resolved Continue renal diet (4) Right kidney mass Current Visit: Yes Status: Acute Will need imaging for better visualization of renal masses (5) Encephalopathy Current Visit: Yes Status: Acute (6) Chronic anemia Current Visit: Yes Status: Acute (7) Family history of CKD (chronic kidney disease) Current Visit: Yes Status: Acute Subjective Interval history: Interim noted, pt admitted with HERNAN with metabolic acidosis responding to intr avenous fluids. Pt seen and examined resting but arousable and heard of hearing Objective - Vital Signs Vital signs: Vital Signs Temp Pulse Resp BP Pulse Ox 11/11/18 11:51 98.5 F 70 18 100/49 96 11/11/18 07:22 98 F 70 18 113/53 98 11/11/18 04:08 97.9 F 67 16 111/53 99 11/10/18 23:44 97.8 F 63 17 116/99 95 11/10/18 20:55 98.0 F 69 14 128/63 91 Intake and Output 11/11/18 11/11/18 11/11/18 07:59 15:59 23:59 Intake Total 25 / 25 130 / 130 Output Total 850 / 850 Balance -825 / -825 130 / 130 Intake: Oral 25 / 25 130 / 130 Output: Catheter 850 / 850 Other: Meal Lunch Percent of Meal Consumed 50% - Lab 11/11/18 03:32 11/11/18 03:32 Most recent lab results Calcium 8.7 mg/dL (8.6-10.3) 11/11/18 03:32 Phosphorus 4.1 mg/dL (2.7-4.5) 11/10/18 05:02 Magnesium 2.4 mg/dL (1.6-2.6) 11/10/18 05:02 Consult Discharge Plan - Plan Referrals: Katrin Rivera, TRAFFIC PERSONNEL SUPERVISOR [Primary Care Provider] -
[2018-11-11] MEDS ORDERED: Sodium Bicarbonate 75 MEQ in 0.45 % Sodium Chloride 1,000 ML IVC SCH (18:00)
[2018-11-12] MEDS: *HR* Heparin 5,000 UNIT/ML VIAL SQ SCH ×2 (06:18→17:21)
--- NOTE | 2018-11-12 06:59 | Event Note ---
Date of Encounter: 11/11/18 Time of Encounter: 21:37 Alerted by pts. nurse STARLA Reese that the pt. was currently a FULL CODE code status but paperwork in the pts. file stated DNRCC. Pt. admitted w/AMS and is confused and only oriented to self. Pt. was originally Full Code status on 11/09 d/t inability to make code status decision. Dr. Lozano met with pts. daughter and son yesterday (11/11) and decision was made to change pts. code status to DNRCC. This information was not available overnight, so Full Code status remained overnight until the change could be verified in the morning w/Dr. Lozano. Discussed and verified w/Dr. Lozano at 06:50 and code status changed from Full Code to DNRCC.
--- NOTE | 2018-11-12 09:45 | Internal Med Progress Note ---
Hospitalist Progress Note - Encounter Date of Encounter: 11/12/18 Time of Encounter: 11:00 - Subjective Interval History: Patient presents with generalized weakness with confusion above baseline memory problems found to have acute renal failure with metabolic acidosis. - Exam Vitals: Temp Pulse Resp BP Pulse Ox 98.7 F 59 16 112/52 96 11/12/18 03:25 11/12/18 08:07 11/12/18 08:07 11/12/18 08:07 11/12/18 03:25 Exam: Gen.: Nonacute distress, alert and oriented 1 ENT: Mucosal membranes moist Respiratory: Lungs are clear to auscultation bilaterally without any wheezing rhonchi or rales Cardiovascular: Normal S1 and S2 regular rate rhythm no murmurs rubs or gallops Abdomen: Soft, nontender and nondistended with positive bowel sounds Extremities: No lower extremity edema Skin: Normal color - Assessment and Plan (1) Acute kidney injury superimposed on CKD Current Visit: Yes Status: Acute Assessment and Plan: Patient with acute on chronic CKD stage III Serum Creatinine: 3.22->2.86->2.11->1.70 Will continue sodium bicarbonate due to patient's anion gap metabolic acidosis Nephrology following and appreciate recommendations. (2) Encephalopathy Current Visit: Yes Status: Acute Assessment and Plan: Head CT and MRI of the brain without any acute intracranial abnormalities Patient with altered mental status in the setting of acute on chronic renal failure. Patient apparently per family history has had issues with memory prior to admission for the last several months. Patient's spouse has also within the last year and patient seems to be "giving up" per family Will continue to monitor closely. (3) Elevated troponin Current Visit: Yes Status: Acute Assessment and Plan: Suspect secondary to renal disease Troponins have been adynamic trend with Non-ischemic EKG and clinical presentation does not correlate with ACS. 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 Will continue to monitor DVT Prophylaxis: Heparin subcutaneous - Time Spent with Patient Total time spent is greater than 50% in coordination of care (as documented) at patient's floor/unit and/or counseling patient: Internal Medicine: Result - Labs CBC & Chem 7: 11/12/18 10:25 11/12/18 10:25 - ABG Interpretation ABG results: PT/INR, D-dimer PT 12.9 Seconds (9.4-12.1) H 11/10/18 05:02 - Impressions Impressions Retroperitoneum Ultrasound 11/10/18 08:00 IMPRESSION: 1. Bilateral hyperechoic kidneys. Finding is nonspecific but can be seen in the setting of chronic renal disease. 2. No evidence of obstructive uropathy. 3. Multiple anechoic masses in the right renal cortex, suspected to be cysts; however, there is an additional 2.1 cm mass that is hypoechoic but not anechoic. Consider CT or MR per renal mass protocol to exclude a solid mass. D/ / 11/10/2018 09:58:32 Edgardo Malave MD / [facility] Interpreting Provider: Edgardo Malave MD Brain MRI 11/12/18 14:48 IMPRESSION: No acute intracranial abnormality. Age related involutional changes and mild chronic microvascular ischemic disease. D/ / Leticia Harrison MD / Leticia Harrison MD Interpreting Provider: Leticia Harrison MD Consult Discharge Plan - Plan Referrals: Katrin Rivera, LEATHERSMITH [Primary Care Provider] -
[2018-11-12 10:50] LABS: Basophils # 0.1 K/mcL (0.0-0.2); Basophils % 0.5 %; Eosinophils # 0.1 K/mcL (0.0-0.6); Eosinophils % 1.5 %; Hematocrit 29.1 % (37.5-50.1); Hemoglobin 9.4 g/dL (12.9-16.9); Immature Granulocytes % 0.2 % (0-4); Lymphocytes # 1.6 K/mcL (0.6-4.6); Lymphocytes % 17.7 %; Mean Corpuscular HGB Conc 32.3 g/dL (31.6-35.5); Mean Corpuscular Hemoglobin 34.2 pg (28.0-33.3); Mean Platelet Volume 9.7 fL (9.4-12.4); Monocytes # 0.8 K/mcL (0.0-1.3); Monocytes % 8.3 %; Neutrophils # 6.6 K/mcL (1.6-8.9); Platelet Count 359 K/mcL (140-400); Red Blood Count 2.75 M/mcL (4.19-5.50); Red Cell Distribution Width 14.1 % (11.5-14.5); Segmented Neutrophils % 71.8 %
[2018-11-12 11:00] LABS: Mean Corpuscular Volume 105.8 fL (83.0-100.0)
[2018-11-12 11:09] LABS: Calcium 8.7 mg/dL (8.6-10.3); Potassium 3.9 mEq/L (3.5-5.1)
--- NOTE | 2018-11-12 12:37 | Nephrology Progress Note ---
Date of Encounter: 11/12/18 Time of Encounter: 12:00 - Assessment and Plan (1) Acute kidney injury superimposed on CKD Current Visit: Yes Status: Acute SCr improving at 1.7, GFR 38 today likely almost at baseline. Labs from 2017 showed SCr at 1.53 Continue IVF today till 1 liter done but encourage adequate po fluids as well Continue to avoid nephrotoxins if possible Sodium noted at 147, family advised to help with fluid intake (2) Metabolic acidosis Current Visit: Yes Status: Acute Bicarb better on po bicarb and bicarb gtt, will monitor (3) Hyperkalemia Current Visit: Yes Status: Acute resolved (4) Right kidney mass Current Visit: Yes Status: Acute Will need imaging for better visualization of renal masses (5) Encephalopathy Current Visit: Yes Status: Acute (6) Chronic anemia Current Visit: Yes Status: Acute (7) Family history of CKD (chronic kidney disease) Current Visit: Yes Status: Acute Subjective Interval history: Interim noted, pt admitted with HERNAN with metabolic acidosis responding to intravenous fluids. Pt seen and examined with family at bedside with all questions answered Objective - Vital Signs Vital signs: Vital Signs Temp Pulse Resp BP Pulse Ox 11/12/18 11:31 58 16 100/57 96 11/12/18 08:07 59 16 112/52 11/12/18 03:25 98.7 F 65 16 130/60 96 11/11/18 23:33 98.4 F 62 15 129/82 95 11/11/18 19:58 97.9 F 66 17 117/54 94 Intake and Output 11/11/18 11/12/18 11/12/18 23:59 07:59 15:59 Intake Total 0 / 0 0 / 0 623 / 623 Output Total 350 / 350 200 / 200 Balance -350 / -350 -200 / -200 623 / 623 Intake: IV Fluids 623 / 623 Sodium Bicarbonate 75 MEQ In 0. 623 / 623 45% Sodium Chloride 1000 Ml 1000 Ml 1,000 ML @ 60 mls/hr IVC .[id number] [facility] Rx#:[id number] Oral 0 / 0 0 / 0 Output: Catheter 350 / 350 200 / 200 Other: Weight 58.3 kg - General Appearance General appearance: Present: chronically ill, fatigue, frail EENT: Present: ATNC, mucous membranes dry Neck: Present: no JVD, supple Additional Comments: good areation ant bilat Cardiology: Present: no edema, normal S1, normal S2 Gastrointestinal: Present: no tenderness, no guarding Integumentary: Present: warm and dry Neurologic: Present: no focal deficit Musculoskeletal: Present: no deformities Psychiatric: Present: mood/affect appropriate - Lab 11/12/18 10:25 11/12/18 10:25 Most recent lab results Calcium 8.7 mg/dL (8.6-10.3) 11/12/18 10:25 Phosphorus 4.1 mg/dL (2.7-4.5) 11/10/18 05:02 Magnesium 2.4 mg/dL (1.6-2.6) 11/10/18 05:02 Consult Discharge Plan - Plan Referrals: Katrin Rivera, AIR SUPPORT CONTROL OFFICER [Primary Care Provider] -
[2018-11-13] MEDS: *HR* Heparin 5,000 UNIT/ML VIAL SQ SCH ×2 (05:44→17:19)
--- NOTE | 2018-11-13 11:36 | Internal Med Progress Note ---
Hospitalist Progress Note - Encounter Date of Encounter: 11/13/18 Time of Encounter: 11:00 - Subjective Interval History: Patient presented due to generalized weakness with confusion above baseline memory problems found to have acute renal failure with metabolic acidosis. Patient's acute kidney injury with metabolic acidosis improving; nephrology following - Exam Vitals: Temp Pulse Resp BP Pulse Ox 98.0 F 60 16 103/60 96 11/13/18 07:55 11/13/18 07:55 11/13/18 07:55 11/13/18 07:55 11/13/18 05:03 Exam: Gen.: Nonacute distress, alert and oriented 1 ENT: Mucosal membranes moist Respiratory: Lungs are clear to auscultation bilaterally without any wheezing rhonchi or rales Cardiovascular: Normal S1 and S2 regular rate rhythm no murmurs rubs or gallops Abdomen: Soft, nontender and nondistended with positive bowel sounds Extremities: No lower extremity edema Skin: Normal color - Assessment and Plan (1) Acute kidney injury superimposed on CKD Current Visit: Yes Status: Acute Assessment and Plan: Patient with acute on chronic CKD stage III Serum Creatinine: 3.22->2.86->2.11->1.70->1.50 Patient's acute kidney injury with metabolic acidosis improving; nephrology following Nephrology following and appreciate recommendations. (2) Encephalopathy Current Visit: Yes Status: Acute Assessment and Plan: Head CT and MRI of the brain without any acute intracranial abnormalities Patient with altered mental status in the setting of acute on chronic renal failure. Patient apparently per family history has had issues with memory prior to admission for the last several months. Patient's spouse has also within the last year and patient seems to be "giving up" per family Will consult palliative care Will continue to monitor closely. (3) Elevated troponin Current Visit: Yes Status: Acute Assessment and Plan: Suspect secondary to renal disease Troponins have been adynamic trend with Non-ischemic EKG and clinical presentation does not correlate with ACS. 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 Will continue to monitor DVT Prophylaxis: Heparin subcutaneous - Time Spent with Patient Total time spent is greater than 50% in coordination of care (as documented) at patient's floor/unit and/or counseling patient: Internal Medicine: Result - Labs CBC & Chem 7: 11/13/18 11:44 11/13/18 11:44 - ABG Interpretation ABG results: PT/INR, D-dimer PT 12.9 Seconds (9.4-12.1) H 11/10/18 05:02 - Impressions Impressions Brain MRI 11/12/18 14:48 IMPRESSION: No acute intracranial abnormality. Age-related involutional changes and mild chronic microvascular ischemic disease. D/ / 11/12/2018 09:41:58 Leticia Harrison MD / [facility] Interpreting Provider: Leticia Harrison MD Consult Discharge Plan - Plan Referrals: Katrin Rivera, WORK CAR OPERATOR [Primary Care Provider] -
[2018-11-13 12:06] LABS: Basophils % 0.4 %; Eosinophils # 0.1 K/mcL (0.0-0.6); Eosinophils % 1.5 %; Hematocrit 27.6 % (37.5-50.1); Hemoglobin 8.9 g/dL (12.9-16.9); Immature Granulocytes % 0.2 % (0-4); Lymphocytes # 1.6 K/mcL (0.6-4.6); Lymphocytes % 17.4 %; Mean Corpuscular HGB Conc 32.2 g/dL (31.6-35.5); Mean Corpuscular Hemoglobin 34.2 pg (28.0-33.3); Mean Corpuscular Volume 106.2 fL (83.0-100.0); Mean Platelet Volume 9.7 fL (9.4-12.4); Monocytes # 0.8 K/mcL (0.0-1.3); Monocytes % 8.5 %; Neutrophils # 6.4 K/mcL (1.6-8.9); Platelet Count 322 K/mcL (140-400); Red Cell Distribution Width 14.1 % (11.5-14.5)
[2018-11-13 12:24] LABS: Calcium 8.5 mg/dL (8.6-10.3); Potassium 3.9 mEq/L (3.5-5.1)
--- NOTE | 2018-11-13 23:36 | Nephrology Progress Note ---
Date of Encounter: 11/13/18 Time of Encounter: 13:00 - Assessment and Plan (1) Acute kidney injury superimposed on CKD Current Visit: Yes Status: Acute SCr improving at 1.45, GFR 46 today likely almost at baseline. Labs from 2017 showed SCr at 1.53 Continue to encourage adequate po fluids Continue to avoid nephrotoxins if possible Sodium noted at 146, family advised to help with fluid intake Will signout, please reconsult prn, Followup with Dr Harris in 2-4 weeks. BMP within a week (2) Metabolic acidosis Current Visit: Yes Status: Acute Bicarb normalized on po bicarb and s/p bicarb gtt (3) Hyperkalemia Current Visit: Yes Status: Acute resolved (4) Right kidney mass Current Visit: Yes Status: Acute Will need imaging for better visualization of renal masses outpatient (5) Encephalopathy Current Visit: Yes Status: Acute resolving (6) Chronic anemia Current Visit: Yes Status: Acute hgb noted at 8.9, will monitor (7) Family history of CKD (chronic kidney disease) Current Visit: Yes Status: Acute Subjective Interval history: Interim noted, pt admitted with HERNAN with metabolic acidosis responding to intravenous fluids. Pt seen and examined with family at bedside more awake today and tolerating po fluids with assistance from daughter. Objective - Vital Signs Vital signs: Vital Signs Temp Pulse Resp BP Pulse Ox 11/13/18 18:37 98.4 F 62 14 134/65 97 11/13/18 15:26 55 16 114/62 96 11/13/18 07:55 98.0 F 60 16 103/60 11/13/18 05:03 98.7 F 59 14 103/57 96 Intake and Output 11/13/18 11/13/18 11/13/18 07:59 15:59 23:59 Intake Total 240 / 240 120 / 120 Output Total 150 / 150 550 / 550 Balance -150 / -150 240 / 240 -430 / -430 Intake: Oral 240 / 240 120 / 120 Output: Catheter 150 / 150 550 / 550 Other: Meal Breakfast Percent of Meal Consumed 10% Weight 58.7 kg Patient Weight 11/13/18 23:59 Weight 58.7 kg - General Appearance General appearance: Present: chronically ill, frail EENT: Present: ATNC, mucous membranes moist Neck: Present: no JVD, supple Respiratory: Present: clear Cardiology: Present: no edema, normal S1, normal S2 Gastrointestinal: Present: no tenderness, no guarding Integumentary: Present: warm and dry Neurologic: Present: no focal deficit (hard of hearing) Musculoskeletal: Present: no deformities Psychiatric: Present: mood/affect appropriate - Lab 11/13/18 11:44 11/13/18 11:44 Most recent lab results Calcium 8.5 mg/dL (8.6-10.3) L 11/13/18 11:44 Phosphorus 4.1 mg/dL (2.7-4.5) 11/10/18 05:02 Magnesium 2.4 mg/dL (1.6-2.6) 11/10/18 05:02 Consult Discharge Plan - Plan Referrals: Katrin Rivera, HOME THERAPY TEACHER [Primary Care Provider] -
[2018-11-14] MEDS: *HR* Heparin 5,000 UNIT/ML VIAL SQ SCH (06:39)
[2018-11-14 07:55] VITALS: BP 114/69
[2018-11-14 10:53] LABS: Basophils % 0.5 %; Eosinophils # 0.2 K/mcL (0.0-0.6); Hemoglobin 9.7 g/dL (12.9-16.9); Immature Granulocytes % 0.2 % (0-4); Lymphocytes # 1.9 K/mcL (0.6-4.6); Lymphocytes % 21.3 %; Mean Corpuscular HGB Conc 32.3 g/dL (31.6-35.5); Mean Corpuscular Hemoglobin 34.3 pg (28.0-33.3); Mean Platelet Volume 9.9 fL (9.4-12.4); Monocytes # 0.6 K/mcL (0.0-1.3); Monocytes % 7.1 %; Neutrophils # 6.1 K/mcL (1.6-8.9); Platelet Count 358 K/mcL (140-400); Red Blood Count 2.83 M/mcL (4.19-5.50); Red Cell Distribution Width 14.1 % (11.5-14.5); Segmented Neutrophils % 68.9 %
[2018-11-14 11:18] LABS: BUN/Creatinine Ratio 27 (6-26); Blood Urea Nitrogen 35 mg/dL (8-23); Calcium 8.6 mg/dL (8.6-10.3); Carbon Dioxide 24 mEq/L (23-29); Chloride 115 mEq/L (98-107); Glucose 125 mg/dL (70-105); Osmolality,Calculated 311 (280-300); Potassium 3.6 mEq/L (3.5-5.1); Sodium 146 mEq/L (136-145); eGFR For Non-African Americans 51 (> 60)
--- NOTE | 2018-11-14 14:21 | Palliative - Consult Note ---
Date of Encounter: 11/14/18 Time of Encounter: 13:15 - Assessment and Plan (1) Goals of care, counseling/discussion Current Visit: Yes Status: Acute Assessment and plan: Met with patient and daughter in law at patient's bedside regarding goals of care. Per family report, patient being discharged today. Family would be interested in [facility] home health to help with increasing patient's strength at home. Notified Nurse Web Application Dev Specialist. Confirmed CODE STATUS as DNRCC. Discharge plan in place, no symptoms. Palliative care will sign off. Please reconsult as needed. (2) Debility, unspecified Current Visit: Yes Status: Acute Assessment and plan: Referred to [facility] Home health. (3) Encephalopathy Current Visit: Yes Status: Resolved Assessment and plan: Resolved. Back to baseline mentation. (4) Acute kidney injury superimposed on CKD Current Visit: Yes Status: Acute Assessment and plan: Patient to follow up with Nephrology outpatient in 2-4 weeks. (5) Right kidney mass Current Visit: Yes Status: Acute Assessment and plan: CT/MRI recommended. Encouraged daughter in law to speak with Nephrology outpatient. Palliative-CN HPI - Data of Consult Patient: new to practice Consult date: 11/14/18 Requesting Physician: Danny Lozano Primary Care Provider: Katrin Rivera CNP - Consult Narrative Palliative Care/Comfort Measures: Palliative care Reason for consult: "Patient giving up" per family; not eating/interacting History of present illness: Mr. Batista is a 88 year old male arrived to [place] [facility] on 11/09/18, for increased confusion and concern for severe dehydration (IVF administered). Patient found to be diagnosed with hyperkalemia, encephalopathy, HERNAN on CKD, elevated troponins, chronic anemia, and 2 month decline in function level. PMH: HTN and CKD. Patient had Echo performed, showing EF 60%. Nephrology consulted and found patient to be in metabolic acidosis, recommended avoiding nephrotoxins, sodium bicarbonate, and renal diet. Retroperitonel ultrasound performed, showing bilateral hyperecholic (expected), no evidence of obstructive uropathy, multiangechoic masses (suspect cysts), and an additional mass that is not anechoic, recommend CT/MRI followup. Palliative care consulted for discharge lupe reilly, as patient had not been eating/interacting; appears to be acute as lack of interaction has resolved and family was surprised as arrival. Patient lives with patient's son and daughter at home. Had been caring for himself, giving himself meds, and walking his dog until about 2 months ago. Patient awake, alert, and oriented to name and place only upon arrival for assessment. Patient's daughter in law Bridget present at bedside. Patient denies pain, anxiety, dyspnea, nausea, and vomiting. Bridget reports patient had been complaining of abdominal pain, resulting in a decreased appetite. Found patient to be lacking sufficient water. CC: Danny Lozano - Time Spent with Patient Time: Total time spent is greater than 50% in coordination of care (as documented) at patient's floor/unit and/or counseling patient: Time with patient: 45 minutes Past Med Surg Social Fam HX - Past Medical History Medical history: non-contributory, hypertension, renal disease Psychiatric history: no psych history - Social History Smoking Status: Never smoker Smokeless Tobacco Status: No Alcohol use: none Medications and Allergies Acetaminophen [Tylenol] 500 - 1,000 mg PO DAILY PRN 11/10/18 [History] Cinnamon Bark [Cinnamon] 2,000 mg PO DAILY 11/10/18 [History] Docusate Sodium [Stool Softener] 100 mg PO DAILY 11/10/18 [History] Lisinopril [Zestril] 40 mg PO DAILY 11/10/18 [History] Metoprolol [Lopressor] 25 mg PO BID 11/10/18 [History] Omeprazole [PriLOSEC] 20 mg PO DAILY 11/10/18 [History] Sodium Bicarbonate 10 gm PO BID 11/10/18 [History] Allergy/AdvReac Type Severity Reaction Status Date / Time No Known Allergies Allergy Verified 02/12/18 11:27 - Constitutional Constitutional ROS PAL: decreased appetite, malaise, no chills, no fever(s), no frequent falls - EENT Eyes: no change in vision, no pain - Cardiovascular Cardiovascular ROS: no chest pain, no diaphoresis, no dyspnea on exertion, no irregular heart rhythm, no pedal edema, no radiating pain - Respiratory Respiratory: no cough, no dyspnea, no snoring - Gastrointestinal Gastrointestinal: no nausea, no vomiting - Genitourinary Genitourinary ROS male: no dysuria - Musculoskeletal Musculoskeletal ROS IM: no back pain - Neurological Neurological ROS: weakness - Psychiatric Psychiatric general PM: memory loss, no anxiety Palliative Care-Exam - Constitutional Vitals: Temp Pulse Resp BP Pulse Ox 97.8 F 60 15 114/69 99 11/14/18 07:53 11/14/18 07:53 11/14/18 07:53 11/14/18 07:53 11/14/18 07:53 General appearance: Present: cooperative, no acute distress, thin - Head Head Exam: Present: atraumatic, normal inspection - Eye Eye exam: Present: EOMI, normal appearance, PERRL, conjuntiva pink. Absent: nystagmus, periorbital swelling, periorbital tenderness - ENT ENT exam: Present: mucous membranes dry, normal external ear exam - Expanded ENT Exam Mouth Exam: Absent: drooling - Neck Neck exam: Present: full ROM, normal inspection. Absent: tenderness - Respiratory Respiratory exam: Present: CTAB. Absent: accessory muscle use, respiratory distress - Cardiovascular Cardiovascular exam: Present: RRR, +S1, +S2 - Expanded Cardiovascular Exam Peripheral pulses: 2+: Radial (L), Radial (R), Posterior Tibialis (L), Posterior Tibialis (R), Dorsalis Pedis (L) PM, Dorsalis Pedis (R) PM - GI/Abdominal Exam GI/Abdominal exam: Present: diminished bowel sounds, soft. Absent: tenderness - Rectal Rectal Exam: Present: deferred - Extremities Exam Extremities exam: Present: full ROM, normal inspection. Absent: calf tenderness, pedal edema - Back Exam Back exam: Present: normal inspection. Absent: tenderness - Neurological Exam Neurological exam: Present: alert, altered. Absent: oriented X3 - Expanded Neurological Exam Patient oriented to: Present: person, place. Absent: time Coma Scale Eye Opening: Spontaneous Coma Scale Motor Response: Obeys Commands Coma Scale Verbal Response: Confused Coma Scale Total: 14 - Skin Skin exam: Present: dry, normal color, warm Internal Medicine - CN: Reslt - Labs CBC & Chem 7: 11/14/18 10:32 11/14/18 10:32 Labs: Short CBC 11/14/18 Range/Units 10:32 WBC 8.8 (4.3-11.1) K/mcL Hgb 9.7 L (12.9-16.9) g/dL Hct 30.0 L (37.5-50.1) % Plt Count 358 (140-400) K/mcL Neutrophils # 6.1 (1.6-8.9) K/mcL BMP 11/14/18 10:32 Sodium 146 H Potassium 3.6 Chloride 115 H Carbon Dioxide 24 BUN 35 H Creatinine 1.32 H Glucose 125 H Calcium 8.6 - ABG Interpretation ABG results: PT/INR, D-dimer PT 12.9 Seconds (9.4-12.1) H 11/10/18 05:02 Consult Discharge Plan - Plan Referrals: Katrin Rivera, WATCH CRYSTAL GRINDER [Primary Care Provider] - Palliative Quality Palliative Quality: Screen for Code Status: Yes, Screen for Goals of Care: Yes, Screen for Pain: Yes, If Pain Regimen Started, Initiate Bowel Regimen: NA, Screen for Nausea/Vomitting: Yes Code Status: 11/12/18 06:50 CODE [Resuscitation Status: Active] [RES] Routine Comment: Per pts. daughter who is the POA Resuscitation Status: DNR-Comfort Care Palliative Scale - Palliative Performance Scale How ambulatory is this patient?: Reduced What is patient's level of activity and evidence of disease?: Unable normal job/work, Significant disease How much self-care assistance does patient require?: Occasional assistance necessary How much oral intake does the patient have?: Normal or reduced What is this patient's level of consciousness?: Full or confusion Palliative Performance Score: 80 %
--- NOTE | 2018-11-14 14:57 | Discharge Summary ---
- NOTES TO OUTPATIENT PROVIDER Notes to Outpatient Provider: Follow-up with Nephrology as an outpatient Orders not resulted at time of discharge: Pending orders 11/09/18 17:45 Culture,Blood [BC] Stat Date of Encounter: 11/14/18 Time of Encounter: 11:00 - Discharge Diagnosis (1) Acute kidney injury superimposed on CKD Priority: Primary Status: Acute (2) Encephalopathy Priority: Secondary Status: Resolved (3) Elevated troponin Priority: Secondary Status: Acute (4) Chronic anemia Priority: Secondary Status: Acute Hospital course: Patient is a 88-year-old male with past medical history significant for hypertension and chronic kidney disease who was brought in by family members that stay with him brought him in for altered mental status. In the ER patient was found to have acute renal failure with metabolic acidosis and was admitted to the medical surgical unit for further monitoring and management. During patients hospital stay nephrology was consulted with recommendations for bicarbonate drip which corrected acidosis. Patient also had a MRI/CT of the head which is negative for any acute findings. Patients mental status improved as an appetite inpatient is medically stable and will be discharged home to follow-up with nephrology as an outpatient. - Time Spent with Patient Total time spent providing and/or coordinating discharge services: Time spent: Less than 30 minutes - Discharge Medications Prescriptions: Continue Acetaminophen [Tylenol] 500 - 1,000 mg PO DAILY PRN PRN Reason: Pain Cinnamon Bark [Cinnamon] 2,000 mg PO DAILY Docusate Sodium [Stool Softener] 100 mg PO DAILY Lisinopril [Zestril] 40 mg PO DAILY Metoprolol [Lopressor] 25 mg PO BID Sodium Bicarbonate 10 gm PO BID Omeprazole [PriLOSEC] 20 mg PO DAILY Home Medications: Acetaminophen [Tylenol] 500 - 1,000 mg PO DAILY PRN 11/10/18 [History] Cinnamon Bark [Cinnamon] 2,000 mg PO DAILY 11/10/18 [History] Docusate Sodium [Stool Softener] 100 mg PO DAILY 11/10/18 [History] Lisinopril [Zestril] 40 mg PO DAILY 11/10/18 [History] Metoprolol [Lopressor] 25 mg PO BID 11/10/18 [History] Omeprazole [PriLOSEC] 20 mg PO DAILY 11/10/18 [History] Sodium Bicarbonate 10 gm PO BID 11/10/18 [History] Allergies/Adverse Reactions: Allergy/AdvReac Type Severity Reaction Status Date / Time No Known Allergies Allergy Verified 02/12/18 11:27 Date of admission: 11/10/18 00:41 Primary care physician: Katrin Rivera CNP Consults: 11/09/18 23:24 Consult to Nephrology [CONS] Routine Consulting Provider: [facility]/VINCE/GENESIS/JOJO Reason for Consult: 88 year old male brought in with generalized malaise and cachexia, noted to have worsening kidney disease Call Completed: No 11/10/18 01:44 Consult to Nutrition [CONS] Routine Comment: Consulting Provider: NUTRITION Reason for Dietary Consult: Diet Education 11/10/18 14:06 Consult to Speech Therapy [CONS] Routine Comment: Evaluate, develop and implement POC Reason for Consult: AMS, Coughing Call Completed: No 11/13/18 11:36 Consult to Palliative Care [CONS] Routine Comment: Consulting Provider: Palliative Care Ana María Reason for Consult: "Patient giving up" per family; not eating/interacting Call Completed: No - Constitutional Vitals: Temp Pulse Resp BP Pulse Ox 97.8 F 60 15 114/69 99 11/14/18 07:53 11/14/18 07:53 11/14/18 07:53 11/14/18 07:53 11/14/18 07:53 Exam: Gen.: Nonacute distress, alert and oriented 1 Skin: Normal color - Patient Status Disposition: Home Health Service Condition: Good - Discharge Instructions Instructions: Anemia (GEN) Follow Up With: Katrin Rivera CNP [Primary Care Provider] - 11/17/18 1:00 pm
--- NOTE | 2018-11-14 14:59 | Physician Discharge Referral ---
Home Health/Hosp Referral Info Transfer to: Home Health - Diagnosis (1) Acute kidney injury superimposed on CKD Status: Acute (2) Encephalopathy Status: Resolved (3) Elevated troponin Status: Acute (4) Chronic anemia Status: Acute - Respiratory Orders Smoking Cessation: Smoking cessation has been advised. For more information, call the [place] Tobacco Quit Line at 9-850-CHVS-NOW. - Services Needed Following services are medically necessary services: Nursing, Physical Therapy, Occupational Therapy - Transfer Medications Home Medications: Acetaminophen [Tylenol] 500 - 1,000 mg PO DAILY PRN 11/10/18 [History] Cinnamon Bark [Cinnamon] 2,000 mg PO DAILY 11/10/18 [History] Docusate Sodium [Stool Softener] 100 mg PO DAILY 11/10/18 [History] Lisinopril [Zestril] 40 mg PO DAILY 11/10/18 [History] Metoprolol [Lopressor] 25 mg PO BID 11/10/18 [History] Omeprazole [PriLOSEC] 20 mg PO DAILY 11/10/18 [History] Sodium Bicarbonate 10 gm PO BID 11/10/18 [History] Allergies/Adverse Reactions: Allergy/AdvReac Type Severity Reaction Status Date / Time No Known Allergies Allergy Verified 02/12/18 11:27 Certification: Further, I certify that my clinical findings support that this patient is homebound (i.e. absences from home require considerable and taxing effort and are for medical reasons or adventism services or infrequently or short duration when for other reasons) because: Homebound Reason: Patient requires assistance of a person or device to safely leave home Attestation: My signature below is to certify that this patient is under my care and that I, or nurse practitioner, or a physician's mail handler assistant working with me, has a [id number] encounter with this patient.
== END 2018-11-14 15:50 | disposition home health service (06) ==
LOC: EMEROOARM 16:52 → 2NENU 16:52 → SUATTDRO 11-10 00:41 → 2NENU 11-10 00:52
PROVIDERS: ADMIT Pediatrics; ATTEND Hospitalist